=== PATIENT | male | born 1980 | race Caucasian/White ===

== ENCOUNTER 2016-12-10 10:52 | Emergency (ER) | payer MEDICAID, OTHER ==
[~2016-12-10] VITALS: Ht 182.9 cm; Wt 85.5 kg
[2016-12-10 12:25] VITALS: BP 120/86
== END 2016-12-10 13:01 | disposition home or self-care (01) ==
LOC: ER 10:52
DX: L25.8 Unspecified contact dermatitis due to other agents (principal); T63.301A Toxic effect of unspecified spider venom, accidental (unintentional), initial encounter; R21 Rash and other nonspecific skin eruption; Z88.6 Allergy status to analgesic agent

== ENCOUNTER 2016-12-26 12:26 | Emergency (ER) | payer MEDICAID ==
[~2016-12-26] VITALS: Ht 182.9 cm; Wt 86.2 kg
[2016-12-26 12:49] VITALS: BP 145/92
[2016-12-26] MEDS ORDERED: HYDROcodone-ACET 7.5/325MG TAB PO ONE (15:00)
== END 2016-12-26 15:13 | disposition home or self-care (01) ==
LOC: ER 12:26
DX: G89.29 Other chronic pain (principal); M25.572 Pain in left ankle and joints of left foot; M19.072 Primary osteoarthritis, left ankle and foot; Z88.6 Allergy status to analgesic agent
CPT/HCPCS: 73610

== ENCOUNTER 2017-01-17 11:39 | Emergency (ER) | payer MEDICAID ==
[~2017-01-17] VITALS: Ht 182.9 cm; Wt 86.2 kg
[2017-01-17 12:44] LABS: Basophils # (auto) 0.2 uL; Basophils % (auto) 1.4 % (0.0-2.0); Eosinophils # (auto) 0 uL; Eosinophils % (auto) 0.1 % (0.0-7.0); Hematocrit 46.3 % (41.0-53.0); Hemoglobin 15.6 g/dL (13.5-17.5); Lymphocytes # (auto) 0.9 uL; Lymphocytes % (auto) 7.7 % (10.0-50.0); Mean Corpuscular Hemoglobin 30.5 pg (28.0-32.0); Mean Corpuscular Hgb Conc. 33.8 g/dL (32.0-36.0); Mean Corpuscular Volume 90.4 fL (80.0-100.0); Mean Platelet Volume 6.9 fL (7.4-10.4); Monocytes # (auto) 0.7 uL; Neutrophils # (auto) 9.8 uL; Neutrophils % (auto) 84.8 % (37.0-80.0); Platelet Count (auto) 431 10^3/uL (140-450); Red Cell Distribution Width 14.1 % (11.6-16.0); White Blood Cell 11.6 10^3/uL (4.4-10.8)
[2017-01-17 13:06] LABS: Albumin 4.5 g/dL (3.4-5.0); Anion Gap 19 (5-15); Aspartate Aminotransferase 76 U/L (15-37); BUN/Creatinine Ratio 31.4; Blood Urea Nitrogen 27 mg/dL (7-18); Calcium 8.5 mg/dL (8.5-10.1); Carbon Dioxide 18 mmol/L (21-32); Chloride 97 mmol/L (98-107); GFR African American 130 mL/min; GFR Non-African American 108 mL/min; Glucose 66 mg/dL (74-106); Potassium 3.6 mmol/L (3.5-5.1); Sodium 134 mmol/L (136-145)
[2017-01-17 13:09] LABS: Alkaline Phosphatase 120 U/L (45-117); Bilirubin, Total 2.4 mg/dL (0.2-1.0); Total Protein 8.3 g/dL (6.4-8.2)
[2017-01-17] MEDS ORDERED: HYDROmorphone HCL 2 MG/ML VL IV ONE (14:30)
[2017-01-17] MEDS ORDERED: ONDANSETRON HCL 4 MG/2 ML VIAL IV ONE (14:30)
[2017-01-17] MEDS ORDERED: SODIUM CHLORIDE 0.9% 2,000 ML IV ONE (14:30)
[2017-01-17] MEDS ORDERED: LORazepam 2MG/ML-1ML VIAL IV ONE (14:30)
[2017-01-17] MEDS ORDERED: PANTOPRAZOLE SODIUM 40 MG/10 ML VIAL IV ONE (14:30)
[2017-01-17 15:02] LABS: Amylase 53 U/L (25-115)
[2017-01-17] MEDS ORDERED: chlordiazePOXIDE HCL 25 MG CAP PO ONE (15:45)
[2017-01-17 16:45] VITALS: BP 128/66
== END 2017-01-17 17:41 | disposition home or self-care (01) ==
LOC: EDBD 11:39 → EDUNIT# 11:39 → ER 11:45
DX: F10.239 Alcohol dependence with withdrawal, unspecified (principal); F41.9 Anxiety disorder, unspecified; R51 Headache; F17.200 Nicotine dependence, unspecified, uncomplicated; Z88.6 Allergy status to analgesic agent; Y90.9 Presence of alcohol in blood, level not specified
CPT/HCPCS: 36415; 80053; 80320; 82150; 83690; 85025; 96361; 96374; 96375; 99284; C9113; J1170; J2060; J2405; J7030

== ENCOUNTER 2020-06-19 14:12 | Emergency (ER) | payer MEDICAID ==
[~2020-06-19] VITALS: Ht 182.9 cm; Wt 89.8 kg
[2020-06-19 16:10] VITALS: BP 132/89
[2020-06-19] MEDS ORDERED: ALPRAZolam 0.25 MG TAB PO ONE (16:15)
[2020-06-19] MEDS ORDERED: HYDROcodone-ACET 5/325MG TAB PO ONE (16:15)
== END 2020-06-19 17:03 | disposition home or self-care (01) ==
LOC: ER 14:12
DX: G89.18 Other acute postprocedural pain (principal); F17.210 Nicotine dependence, cigarettes, uncomplicated; Z88.8 Allergy status to other drugs, medicaments and biological substances

== ENCOUNTER 2024-08-30 13:55 | Emergency (ER) | payer MEDICAID ==
[~2024-08-30] VITALS: Ht 182.9 cm; Wt 98.9 kg
[~2024-08-30 13:55] MED LIST: AZITTAB PO; LORA-1123 PO
[2024-08-30] MEDS ORDERED: CLON-1004 PO (15:06)
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
[2024-08-30] MEDS ORDERED: clonazePAM 0.5 MG TAB PO ONE (15:15)
[2024-08-30] MEDS: clonazePAM 0.5 MG TAB PO ONE (16:02)
[2024-08-30] MEDS: LORazepam 0.5 MG TAB PO ONE (16:31)
[2024-08-30 16:38] VITALS: BP 127/95; PULSE 100; TEMP 98.2
[2024-08-30 16:39] VITALS: RESP 19; O2SAT 100
== END 2024-08-30 16:40 | disposition home or self-care (01) ==
LOC: ER 13:55
DX: F41.9 Anxiety disorder, unspecified (principal); F17.210 Nicotine dependence, cigarettes, uncomplicated; Z76.0 Encounter for issue of repeat prescription; Z79.899 Other long term (current) drug therapy; Z88.5 Allergy status to narcotic agent